=== PATIENT | female | born 1945 | race Caucasian/White ===

== ENCOUNTER 2019-08-08 12:22 | Inpatient (IN) | payer MEDICARE ==
[~2019-08-08] VITALS: Ht 157.5 cm; Wt 59.5 kg
[2019-08-08] VITALS (7 sets, daily range): BP systolic 130–166; BP diastolic 61–78; BMI 24.2
[2019-08-08] MEDS ORDERED: LANTUS SOL100 UNIT/1 SC (12:32)
[2019-08-08] MEDS ORDERED: NOVOLOG100 UNIT/1 SC (12:32)
[2019-08-08] MEDS ORDERED: HYDROCODON-ACE1 EA10 PO (12:33)
[2019-08-08] MEDS ORDERED: TOPROL XL50 MG PO (12:33)
[2019-08-08] MEDS ORDERED: LOTENSIN40 MG PO (12:33)
[2019-08-08] MEDS ORDERED: ZOLOFT50 MG PO (12:33)
[2019-08-08 13:02] LABS: BASOPHILS 0.3 % (0-2); EOSINOPHILS 2.1 % (0-7); HEMATOCRIT 44.6 % (36.0-48.0); HEMOGLOBIN 16.2 g/dL (12-16); IMMATURE GRANULOCYTES 0.4 % (0-5); LYMPHOCYTES 16.7 % (15-50); MCH 31.6 pg (26.0-34.0); MCHC 36.3 g/dL (31.0-37.0); MCV 87.1 fL (80.0-100.0); MEAN PLATELET VOLUME 12.9 fL (7.4-10.4); MONOCYTES 6.6 % (2-11); NEUTROPHILS 73.9 % (40-80); PLATELET COUNT 140 10x3/uL (130-400); RBC 5.12 10x6/uL (4.00-5.40); RDW 12.4 % (11.5-14.5); WBC 11.1 10x3/uL (4.8-10.8)
[2019-08-08 13:06] LABS: KETONE - SERUM NEGATIVE (NEGATIVE)
[2019-08-08 13:17] LABS: ALBUMIN 4.4 g/dL (3.4-5.0); ALKALINE PHOSPHATASE 171 U/L (46-116); ALT (SGPT) 22 U/L (10-68); BILIRUBIN - TOTAL 1.31 mg/dL (0.2-1.3); CARBON DIOXIDE 26.9 mmol/L (21.0-32.0); CHLORIDE - SERUM 90 mmol/L (98-107); CREATININE - SERUM 1.5 mg/dL (0.6-1.3); MAGNESIUM - SERUM 2.3 mg/dL (1.8-2.4); POTASSIUM - SERUM 5.1 mmol/L (3.5-5.1); PROTEIN - SERUM 8.3 g/dL (6.4-8.2); SODIUM 128 mmol/L (136-145); UREA NITROGEN 44 mg/dL (7-18); eGFR NON AFRICAN AMERICAN 36 mL/min (90-120)
[2019-08-08 13:18] LABS: CALC OSMOLALITY 303 mosm/kg (275-300)
[2019-08-08 13:21] LABS: GLUCOSE 744 mg/dL (74-106)
[2019-08-08 14:25] LABS: APTT 25.3 SECONDS (22.8-39.4); INR 1.09 (0.85-1.17); PROTIME 14.1 SECONDS (11.6-15.0)
[2019-08-08 14:26] LABS: D-DIMER-QUANTITATIVE 0.45 ug/mLFEU (0.20-0.54)
--- NOTE | 2019-08-08 14:34 | NUR ---
FSBS= 509 MG/DL DR SHELTON NOTIFIED
[2019-08-08 15:25] LABS: APPEARANCE CLEAR (CLEAR); BILIRUBIN NEGATIVE (NEGATIVE); COLOR YELLOW (YELLOW); GLUCOSE 1000 mg/dL (NEGATIVE); KETONE NEGATIVE (NEGATIVE); NITRITE NEGATIVE (NEGATIVE); PROTEIN NEGATIVE (NEGATIVE); UROBILINOGEN NORMAL (NORMAL)
--- NOTE | 2019-08-08 15:32 | NUR ---
REPORT CALLED TO HERVE MOTA
--- NOTE | 2019-08-08 16:34 | NUR ---
ROOM CLEAN, PT TRANSPORTED TO ROOM #2112, CONDITION STABLE
--- NOTE | 2019-08-08 16:49 | NUR ---
TRANSFER FROM ER BY W/C. CALL LIGHT IN REACH. WILL CONT. PLAN OF CARE.
[2019-08-08] MEDS ORDERED: OXYBUTYNIN CHLOR5 M1 PO (16:52)
--- NOTE | 2019-08-08 16:54 | MORECARE ---
CASE MANAGEMENT DISCHARGE SUMMARY PATIENT: ENDER FERRELL KARLEY UNIT: [id number] ADM DATE: 08/08/19 AGE: 74 : 46 SEX: F ROOM/BED: D.4045 AUTHOR: KIERAN,DOC PHYSICIAN: REFERRING PHYSICIAN: TEE ISLAS MD DATE OF SERVICE: 08/08/19 Discharge Plan Patient Name: ENDER FERRELL Facility: [facility]:[place] : 1945 Planned Disposition: Anticipated Discharge Date: Discharge Date: Expected LOS: Initial Reviewer: [email or web address] Initial Review Date: 08/08/2019 Generated: 08/08/19 5:54 pm DCP- Discharge Planning Updated by [email or web address]: Edwina Campbell on 08/08/19 3:[address] CM met with patient to discuss initial discharge planning. Patient is in agreement to proceed with the assessment with son, Mp Ferrell present. Patient is alert/oriented. Stairs/steps: 2. PCP: Brianna Matt APRN. Pharmacy: [email or web address]. Patient's son states she has been able to obtain all of their prescribed medications. Patient lives with son, Mp Ferrell. HHS: No. DME: No. Patient gives permission to speak with family members/care givers. Emergency contact: Mp Ferrell (son) [phone]. Patient is Independent with all ADL's, medication management. CM discussed the availability of HH, Rehab, DME services. Patient denies the need for additional services at this time and feels safe returning to previous environment. Patient denies being hospitalized within the past 30 days. Patient denies the use of community resources SET STAFF FITTER. Transportation at time of discharge: Mp Ferrell (son). DCPIA - Discharge Planning Initial Assessment Updated by [email or web address]: Edwina Campbell on 08/08/19 4:52 pm * Is the patient Alert and Oriented? Yes * How many steps to enter\exit or inside your home? * PCP Brianna Matt APRN [facility] [place] * Pharmacy [facility] * Preadmission Environment Home with Family * ADLs Independent * Equipment None * Other Equipment NA * List name and contact numbers for known caregivers / representatives who currently or will assist patient after discharge: Mp Ferrell (son) [phone] * Verbal permission to speak to the caregivers and representatives has been obtained from the patient. Yes * Community resources currently utilized None * Please name any agencies selected above. NA * Additional services required to return to the preadmission environment? No * Can the patient safely return to the preadmission environment? Yes * Has this patient been hospitalized within the prior 30 days at any hospital? No Patient Name: ENDER FERRELL Page [id number] at 1654 All edits/amendments must be made on the electronic document DICTATION DATE: 08/08/191653 MANAGER STAFFING: VALERIE 08/08/191653 RPT#: [id number] DC DATE: STATUS: ADM IN [facility] [address] [place] [address] END OF REPORT
[2019-08-08] MEDS ORDERED: ZANAFLEX4 MG PO (20:00)
[2019-08-08 21:51] LABS: ANION GAP 8.5 mmol/L (8-16); CALCIUM 7.8 mg/dL (8.5-10.1); CARBON DIOXIDE 30.6 mmol/L (21.0-32.0); CREATININE - SERUM 1.4 mg/dL (0.6-1.3); POTASSIUM - SERUM 4.1 mmol/L (3.5-5.1)
[2019-08-09 01:49] VITALS: BP 123/59
[2019-08-09 04:00] VITALS: BP 163/65
--- NOTE | 2019-08-09 04:06 | NUR ---
I have reviewed this patient and I concur with the Shift Assessment completed by the Licensed Practical Nurse today this shift.
[2019-08-09 06:14] LABS: KETONE - SERUM NEGATIVE (NEGATIVE)
[2019-08-09 06:42] LABS: ALBUMIN 3.4 g/dL (3.4-5.0); ALKALINE PHOSPHATASE 88 U/L (46-116); ALT (SGPT) 18 U/L (10-68); BILIRUBIN - TOTAL 0.49 mg/dL (0.2-1.3); CALC OSMOLALITY 290 mosm/kg (275-300); CARBON DIOXIDE 21.7 mmol/L (21.0-32.0); CHLORIDE - SERUM 107 mmol/L (98-107); GLUCOSE 176 mg/dL (74-106); POTASSIUM - SERUM 3.9 mmol/L (3.5-5.1); PRO BNP 425 pg/mL (0-125); PROTEIN - SERUM 6.4 g/dL (6.4-8.2); SODIUM 140 mmol/L (136-145); UREA NITROGEN 35 mg/dL (7-18); eGFR NON AFRICAN AMERICAN 58 mL/min (90-120)
[2019-08-09 07:26] LABS: BASOPHILS 0.3 % (0-2); EOSINOPHILS 3.6 % (0-7); HEMATOCRIT 37.2 % (36.0-48.0); HEMOGLOBIN 13.4 g/dL (12-16); IMMATURE GRANULOCYTES 0.1 % (0-5); LYMPHOCYTES 32.1 % (15-50); MCH 31.2 pg (26.0-34.0); MCV 86.7 fL (80.0-100.0); MEAN PLATELET VOLUME 13.2 fL (7.4-10.4); MONOCYTES 7.1 % (2-11); NEUTROPHILS 56.8 % (40-80); PLATELET COUNT 117 10x3/uL (130-400); RBC 4.29 10x6/uL (4.00-5.40); RDW 12.9 % (11.5-14.5)
[2019-08-09 07:33] LABS: WBC 7.7 10x3/uL (4.8-10.8)
--- NOTE | 2019-08-09 08:03 | NUR ---
PATIENT IS RESTING QUIETLY ON HER BACK IN BED. LIGHTS LOW. SON AT BEDSIDE.
[2019-08-09 09:48] VITALS: BP 158/63
[2019-08-09 13:41] VITALS: Ht 157.5 cm; Wt 59.5 kg
[2019-08-09 13:44] VITALS: BP 148/68
--- NOTE | 2019-08-09 14:01 | NUR ---
IV START IN LEFT FOREARM, 20G, ONE STICK.
[2019-08-09 15:07] LABS: ANION GAP 11.5 mmol/L (8-16); CALCIUM 7.3 mg/dL (8.5-10.1)
[2019-08-09 15:08] LABS: POTASSIUM - SERUM 4.5 mmol/L (3.5-5.1)
[2019-08-09 17:09] VITALS: BP 121/46
[2019-08-09 20:00] VITALS: BP 133/55
[2019-08-10] VITALS: BP 128/47
[2019-08-10 04:00] VITALS: BP 152/45
--- NOTE | 2019-08-10 04:30 | NUR ---
I have reviewed this patient and I concur with the Shift Assessment completed by the Licensed Practical Nurse today this shift.
[2019-08-10 06:36] LABS: BASOPHILS 0.2 % (0-2); EOSINOPHILS 3.7 % (0-7); HEMATOCRIT 32.9 % (36.0-48.0); HEMOGLOBIN 11.4 g/dL (12-16); LYMPHOCYTES 30.9 % (15-50); MCH 30.6 pg (26.0-34.0); MCHC 34.7 g/dL (31.0-37.0); MCV 88.4 fL (80.0-100.0); MEAN PLATELET VOLUME 12.8 fL (7.4-10.4); MONOCYTES 7.7 % (2-11); NEUTROPHILS 57.5 % (40-80); RBC 3.72 10x6/uL (4.00-5.40); RDW 12.9 % (11.5-14.5)
[2019-08-10 06:53] LABS: KETONE - SERUM NEGATIVE (NEGATIVE)
[2019-08-10 06:57] LABS: PLATELET COUNT 81 10x3/uL (130-400); WBC 4.1 10x3/uL (4.8-10.8)
[2019-08-10 07:06] LABS: CALCIUM 7.5 mg/dL (8.5-10.1); CARBON DIOXIDE 25.3 mmol/L (21.0-32.0); CHLORIDE - SERUM 110 mmol/L (98-107); CREATININE - SERUM 0.9 mg/dL (0.6-1.3); MAGNESIUM - SERUM 1.9 mg/dL (1.8-2.4); SODIUM 142 mmol/L (136-145); UREA NITROGEN 27 mg/dL (7-18); eGFR NON AFRICAN AMERICAN 65 mL/min (90-120)
[2019-08-10 07:07] LABS: CALC OSMOLALITY 295 mosm/kg (275-300); GLUCOSE 237 mg/dL (74-106); POTASSIUM - SERUM 3.8 mmol/L (3.5-5.1)
[2019-08-10 10:00] LABS: PLATELET ESTIMATE DECREASED
[2019-08-10 10:01] LABS: ROULEAUX OCC
--- NOTE | 2019-08-10 14:37 | NUR ---
PATIENT IS RESTING QUIETLY IN HER ROOM AT THIS TIME. SHE DENIES ANY NEEDS AT THIS TIME.
[2019-08-10 14:56] VITALS: BP 170/64
--- NOTE | 2019-08-10 15:31 | MORECARE ---
CASE MANAGEMENT DISCHARGE SUMMARY PATIENT: ENDER FERRELL KARLEY UNIT: [id number] ADM DATE: 08/08/19 AGE: 74 : 46 SEX: F ROOM/BED: D.7839 AUTHOR: KIERAN,DOC PHYSICIAN: REFERRING PHYSICIAN: TEE ISLAS MD DATE OF SERVICE: 08/10/19 Discharge Plan Patient Name: ENDER FERRELL Facility: [facility]:[place] : 1945 Planned Disposition: Anticipated Discharge Date: Discharge Date: Expected LOS: Initial Reviewer: [email or web address] Initial Review Date: 08/08/2019 Generated: 08/10/19 4:31 pm DCP- Discharge Planning Updated by [email or web address]: Edwina Campbell on 08/08/19 3:[address] CM met with patient to discuss initial discharge planning. Patient is in agreement to proceed with the assessment with son, Mp Ferrell present. Patient is alert/oriented. Stairs/steps: 2. PCP: Brianna Matt APRN. Pharmacy: [facility]. Patient's son states she has been able to obtain all of their prescribed medications. Patient lives with son, Mp Ferrell. HHS: No. DME: No. Patient gives permission to speak with family members/care givers. Emergency contact: Mp Ferrell (son) [phone]. Patient is Independent with all ADL's, medication management. CM discussed the availability of HH, Rehab, DME services. Patient denies the need for additional services at this time and feels safe returning to previous environment. Patient denies being hospitalized within the past 30 days. 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 Transportation at time of discharge: Mp Ferrell (son). DCPIA - Discharge Planning Initial Assessment Updated by [email or web address]: Edwina Campbell on 08/08/19 4:52 pm * Is the patient Alert and Oriented? Yes * How many steps to enter\exit or inside your home? * PCP Brianna Matt APRN [facility] [place] * Pharmacy [facility] * Preadmission Environment Home with Family * ADLs Independent * Equipment None * Other Equipment NA * List name and contact numbers for known caregivers / representatives who currently or will assist patient after discharge: Mp Ferrell (son) [phone] * Verbal permission to speak to the caregivers and representatives has been obtained from the patient. Yes * Community resources currently utilized None * Please name any agencies selected above. NA * Additional services required to return to the preadmission environment? No * Can the patient safely return to the preadmission environment? Yes * Has this patient been hospitalized within the prior 30 days at any hospital? No Coverage Notice Reviewer: [id number] Endy Boggs Notice Issued Date-Time: 08/10/2019 15:26 Notice Type: IM Discharge Notice Notice Delivered To: Patient Relationship to Patient: Director Of Hotel Name: Delivery Method: HAND - Hand Delivered Elena Days: Prior Verbal Notification: Recipient Understood Notice: Yes Recipient Signature: Yes Med Rec Note Co-signed by Attending: Coverage Notice Comment: Last DP export: 08/08/19 3:54 p Patient Name: ENDER FERRELL Page 48852 at 1531 All edits/amendments must be made on the electronic document DICTATION DATE: 08/10/19 1531 OVERLOCK HEMMER: VALERIE 08/10/19 1531 RPT#: [id number] DC DATE: STATUS: ADM IN [facility] [address] [place] [address] END OF REPORT
[2019-08-10 16:00] VITALS: BP 183/63
[2019-08-10 20:00] VITALS: BP 163/58
[2019-08-11 04:00] VITALS: BP 174/72
[2019-08-11 05:27] LABS: BASOPHILS 0.2 % (0-2); EOSINOPHILS 4.5 % (0-7); HEMATOCRIT 32.7 % (36.0-48.0); HEMOGLOBIN 11.4 g/dL (12-16); IMMATURE GRANULOCYTES 0.2 % (0-5); LYMPHOCYTES 32.3 % (15-50); MCH 30.7 pg (26.0-34.0); MCHC 34.9 g/dL (31.0-37.0); MCV 88.1 fL (80.0-100.0); MEAN PLATELET VOLUME 12.4 fL (7.4-10.4); MONOCYTES 9.6 % (2-11); NEUTROPHILS 53.2 % (40-80); PLATELET COUNT 78 10x3/uL (130-400); RBC 3.71 10x6/uL (4.00-5.40); RDW 12.8 % (11.5-14.5); WBC 4.7 10x3/uL (4.8-10.8)
[2019-08-11 05:54] LABS: ANION GAP 11.5 mmol/L (8-16); CALCIUM 7.7 mg/dL (8.5-10.1); CREATININE - SERUM 0.8 mg/dL (0.6-1.3); MAGNESIUM - SERUM 1.8 mg/dL (1.8-2.4); PHOSPHOROUS 2.8 mg/dL (2.5-4.9); POTASSIUM - SERUM 4.5 mmol/L (3.5-5.1)
--- NOTE | 2019-08-11 07:06 | NUR ---
I have reviewed this patient and I concur with the Shift Assessment completed by the Licensed Practical Nurse today this shift.
[2019-08-11 08:54] VITALS: BP 159/61
[2019-08-11 12:00] VITALS: BP 192/70
--- NOTE | 2019-08-11 14:35 | NUR ---
PATIENT IS BEING DISCHARGED. ATTEMPTED TO CONTACT THE SON, HER DISCHARGE TRANSPORTATION. HE IS NO ANSWERING ANY OF THE NUMBERS LISTED. ATTEMPTED TO CONTACT X5. SON ELOISE STATED THAT HE WOULD BE BACK UP HERE THIS AFTERNOON. WHEN HE DOES HE WILL BE INFORMED OF HER DISCHARGE.
--- NOTE | 2019-08-11 15:31 | NUR ---
CONTACTED ELOISE PATIENT FAMILY. HE IS GOING TO HEAD THIS WAY. HE LIVES AN HOUR AWAY. DISCHARGE TEACHING COMPLETED AND PATIENT IS AWARE, PAPERS SIGNED.
[2019-08-11 16:00] VITALS: BP 170/76
--- NOTE | 2019-08-11 17:29 | NUR ---
PATIENT HAS BEEN DISCHARGED . ALL TEACHING COMPLETE AND PAPERS SIGNED. PATIENT IS GOING HOME WITH FAMILY SHE IS GOING DOWN STAIRS IN A WHEELCHAIR. ALL PATIENT BELONGINGS ARE GOING HOME WITH THE PATIENT. IV REMOVED WITH CATHETER INTACT.
--- NOTE | 2019-08-12 19:10 | MORECARE ---
CASE MANAGEMENT DISCHARGE SUMMARY PATIENT: ENDER FERRELL KARLEY UNIT: [id number] ADM DATE: 08/08/19 AGE: 74 : 46 SEX: F ROOM/BED: D.4503 AUTHOR: KIERAN,DOC PHYSICIAN: REFERRING PHYSICIAN: TEE ISLAS MD DATE OF SERVICE: 08/12/19 Discharge Plan Patient Name: ENDER FERRELL Facility: [facility]:[place] : 1945 Planned Disposition: Anticipated Discharge Date: Discharge Date: 08/11/2019 Expected LOS: Initial Reviewer: [email or web address] Initial Review Date: 08/08/2019 Generated: 08/12/19 8:10 pm DCP- Discharge Planning Updated by [email or web address]: Edwina Campbell on 08/08/19 3:[address] CM met with patient to discuss initial discharge planning. Patient is in agreement to proceed with the assessment with son, Mp Ferrell present. Patient is alert/oriented. Stairs/steps: 2. PCP: Brianna Matt APRN. Pharmacy: [facility]. Patient's son states she has been able to obtain all of their prescribed medications. Patient lives with son, Mp Ferrell. HHS: No. DME: No. Patient gives permission to speak with family members/care givers. Emergency contact: Mp Ferrell (son) [phone]. Patient is Independent with all ADL's, medication management. CM discussed the availability of HH, Rehab, DME services. Patient denies the need for additional services at this time and feels safe returning to previous environment. Patient denies being hospitalized within the past 30 days. 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 Transportation at time of discharge: Mp Ferrell (son). DCPIA - Discharge Planning Initial Assessment Updated by [email or web address]: Edwina Campbell on 08/08/19 4:52 pm * Is the patient Alert and Oriented? Yes * How many steps to enter\exit or inside your home? * PCP Brianna Matt APRN [facility] [place] * Pharmacy [facility] * Preadmission Environment Home with Family * ADLs Independent * Equipment None * Other Equipment NA * List name and contact numbers for known caregivers / representatives who currently or will assist patient after discharge: Mp Ferrell (son) [phone] * Verbal permission to speak to the caregivers and representatives has been obtained from the patient. Yes * Community resources currently utilized None * Please name any agencies selected above. NA * Additional services required to return to the preadmission environment? No * Can the patient safely return to the preadmission environment? Yes * Has this patient been hospitalized within the prior 30 days at any hospital? No Coverage Notice Reviewer: [id number] Endy Boggs Notice Issued Date-Time: 08/10/2019 15:26 Notice Type: IM Discharge Notice Notice Delivered To: Patient Relationship to Patient: Cargo Broker Name: Delivery Method: HAND - Hand Delivered Elena Days: Prior Verbal Notification: Recipient Understood Notice: Yes Recipient Signature: Yes Med Rec Note Co-signed by Attending: Coverage Notice Comment: Last DP export: 08/10/19 2:31 p Patient Name: ENDER FERRELL Page 62426 at 1910 All edits/amendments must be made on the electronic document DICTATION DATE: 08/12/191909 LACE CUTTER: VALERIE 08/12/191909 RPT#: [id number] DC DATE:08/11/19 STATUS: DIS IN [facility] [address] [place] [address] END OF REPORT
== END 2019-08-11 18:46 | disposition home or self-care (01) | DRG 638 ==
LOC: D.ER 12:22 → D.M2 15:01
PROVIDERS: Family Medicine; ADMIT Internal Medicine Nephrology; ATTEND Internal Medicine Nephrology
DX: E11.65 Type 2 diabetes mellitus with hyperglycemia (principal); E87.1 Hypo-osmolality and hyponatremia; N17.9 Acute kidney failure, unspecified; J44.9 Chronic obstructive pulmonary disease, unspecified; E78.5 Hyperlipidemia, unspecified; I10 Essential (primary) hypertension; E11.40 Type 2 diabetes mellitus with diabetic neuropathy, unspecified; F32.9 Major depressive disorder, single episode, unspecified

== ENCOUNTER 2019-10-02 14:37 | Inpatient (IN) | payer MEDICARE ==
[~2019-10-02] VITALS: Ht 157.5 cm; Wt 60.3 kg
[~2019-10-02 14:37] MED LIST: HYDROCODON-ACE1 EA10 PO; LANTUS SOL100 UNIT/1 SC; LOTENSIN40 MG PO; NOVOLOG100 UNIT/1 SC; OXYBUTYNIN CHLOR5 M1 PO; TOPROL XL50 MG PO; ZANAFLEX4 MG PO; ZOLOFT50 MG PO
[2019-10-02] MEDS ORDERED: [UNRECOGNIZED DRUG - REMARK] (15:02)
[2019-10-02 15:33] LABS: BASOPHILS 0.1 % (0-2); EOSINOPHILS 2.3 % (0-7); HEMATOCRIT 42.2 % (36.0-48.0); HEMOGLOBIN 15.2 g/dL (12-16); IMMATURE GRANULOCYTES 0.4 % (0-5); LYMPHOCYTES 18.3 % (15-50); MCH 31.4 pg (26.0-34.0); MCV 87.2 fL (80.0-100.0); MEAN PLATELET VOLUME 11.7 fL (7.4-10.4); MONOCYTES 7.2 % (2-11); NEUTROPHILS 71.7 % (40-80); RBC 4.84 10x6/uL (4.00-5.40); RDW 12.9 % (11.5-14.5); WBC 9.5 10x3/uL (4.8-10.8)
[2019-10-02 15:37] LABS: PLATELET COUNT 173 10x3/uL (130-400)
[2019-10-02 15:46] LABS: ANION GAP 13.6 mmol/L (8-16); CALCIUM 9.5 mg/dL (8.5-10.1); CARBON DIOXIDE 27.6 mmol/L (21.0-32.0); CREATININE - SERUM 1.3 mg/dL (0.6-1.3); POTASSIUM - SERUM 4.2 mmol/L (3.5-5.1)
[2019-10-02 15:52] LABS: BILIRUBIN - TOTAL 0.6 mg/dL (0.2-1.3); PROTEIN - SERUM 8.5 g/dL (6.4-8.2)
--- NOTE | 2019-10-02 20:01 | NUR ---
PT SITTING IN CHAIR. NO ACUTE DISTRESS NOTED. WILLL CONTINUE TO MONITOR.
--- NOTE | 2019-10-02 20:46 | NUR ---
FSBS 311.
--- NOTE | 2019-10-02 21:03 | NUR ---
PT ARRIVED ON UNIT VIA WHEELCHAIR ESCORTED BY ER NURSE AND FAMILY MEMBER. IV TO RIGHT FA PATENT WITH NS INFUSING ON ARRIVAL...PLACED ON PUMP AT 75 ML/HR PER ORDER.
[2019-10-02] MEDS ORDERED: AUGMENTIN 875-11 TAB PO (21:19)
[2019-10-02 23:15] VITALS: BP 166/64; BMI 24.4
[2019-10-03 01:59] VITALS: BP 161/54
[2019-10-03 04:36] LABS: BASOPHILS 0.2 % (0-2); EOSINOPHILS 2.8 % (0-7); HEMATOCRIT 37.2 % (36.0-48.0); IMMATURE GRANULOCYTES 0.2 % (0-5); LYMPHOCYTES 20.3 % (15-50); MCHC 34.9 g/dL (31.0-37.0); MCV 88.8 fL (80.0-100.0); MEAN PLATELET VOLUME 12.2 fL (7.4-10.4); MONOCYTES 8.9 % (2-11); NEUTROPHILS 67.6 % (40-80); PLATELET COUNT 125 10x3/uL (130-400); RBC 4.19 10x6/uL (4.00-5.40); RDW 13.1 % (11.5-14.5); WBC 5.4 10x3/uL (4.8-10.8)
[2019-10-03 04:50] LABS: CARBON DIOXIDE 26.4 mmol/L (21.0-32.0); MAGNESIUM - SERUM 1.7 mg/dL (1.8-2.4); PHOSPHOROUS 3.7 mg/dL (2.5-4.9)
[2019-10-03 04:54] LABS: POTASSIUM - SERUM 3.4 mmol/L (3.5-5.1)
--- NOTE | 2019-10-03 05:31 | NUR ---
BLOOD SUGAR 52 WITH AM LABS. GAVE 1 CUP ORANGE JUICE, 3 PKGS OF ZOYA CRACKERS, AND 2 TBS PEANUT BUTTER. POTASSIUM AND MAG LEVELS ALSO LOW AND WERE TREATED PER THE ELECTROLYTE PROTOCAL.
[2019-10-03 06:04] VITALS: BP 156/55
[2019-10-03 08:00] VITALS: BP 174/64
[2019-10-03 10:17] VITALS: Ht 157.5 cm; Wt 60.3 kg
[2019-10-03 12:00] VITALS: BP 127/61
[2019-10-03 17:09] VITALS: BP 143/61
--- NOTE | 2019-10-03 20:00 | NUR ---
AMBULATING IN ROOM. ALERT AND ORIENTED X4. RESP IRREG. BBS EXP WHEEZES. PT IS A SMOKER. BANDAID NOTED TO RT FOOT WHICH IS RED AND SWOLLEN. NS @ 50 ML/HR INFUSING IN RT AC WITHOUT DIFF. DENIES PAIN. SR ELEVATED X2. CL IN REACH.
--- NOTE | 2019-10-03 20:45 | NUR ---
MEDICATED WITH MORHPINE FOR C/O PAIN IN RT FOOT RATING 8. SON AT BEDSIDE. CL IN REACH.
[2019-10-03 21:09] VITALS: BP 150/63
[2019-10-04 01:29] VITALS: BP 179/57
--- NOTE | 2019-10-04 02:13 | NUR ---
HAS RESTED WELL SO FAR THIS SHIFT. SON AT BEDSIDE. CL IN REACH.
--- NOTE | 2019-10-04 05:20 | NUR ---
MEDICATED WITH MORPHINE FOR C/O PAIN IN RT FOOT/ANKLE. CL IN REACH. SON AT BEDSIDE.
[2019-10-04 05:53] VITALS: BP 134/64
--- NOTE | 2019-10-04 06:10 | NUR ---
INSTRUCTED PT ON URINE SPECIMEN COLLECTION. SHE VERBALIZED UNDERSTANDING.
[2019-10-04 06:18] LABS: BASOPHILS 0.2 % (0-2); EOSINOPHILS 4.6 % (0-7); HEMATOCRIT 34.4 % (36.0-48.0); HEMOGLOBIN 11.6 g/dL (12-16); IMMATURE GRANULOCYTES 0.2 % (0-5); LYMPHOCYTES 27.9 % (15-50); MCH 30.5 pg (26.0-34.0); MCHC 33.7 g/dL (31.0-37.0); MCV 90.5 fL (80.0-100.0); MONOCYTES 6.6 % (2-11); NEUTROPHILS 60.5 % (40-80); PLATELET COUNT 112 10x3/uL (130-400); RDW 12.9 % (11.5-14.5); WBC 4.1 10x3/uL (4.8-10.8)
--- NOTE | 2019-10-04 06:30 | NUR ---
URINE SPECIMEN COLLECTED AND TAKEN TO LAB AT THIS TIME.
[2019-10-04 06:42] LABS: ANION GAP 10.2 mmol/L (8-16); CALCIUM 8.1 mg/dL (8.5-10.1); CREATININE - SERUM 0.9 mg/dL (0.6-1.3); PHOSPHOROUS 3.2 mg/dL (2.5-4.9); POTASSIUM - SERUM 4.2 mmol/L (3.5-5.1)
[2019-10-04 06:53] LABS: BILIRUBIN NEGATIVE (NEGATIVE); GLUCOSE NEGATIVE (NEGATIVE); KETONE NEGATIVE (NEGATIVE); NITRITE NEGATIVE (NEGATIVE); SPECIFIC GRAVITY 1.015 (1.005-1.020); UROBILINOGEN NORMAL (NORMAL)
[2019-10-04 08:30] VITALS: BP 152/62
[2019-10-04] MEDS ORDERED: AUGMENTIN 875-11 TAB PO (12:25)
[2019-10-04] MEDS ORDERED: HYDROCODON-ACE1 EAC7 PO ×2 (13:17→14:30)
[2019-10-04 13:52] VITALS: BP 130/57
--- NOTE | 2019-10-04 14:07 | MORECARE ---
CASE MANAGEMENT DISCHARGE SUMMARY PATIENT: ENDER FERRELL KARLEY UNIT: [id number] ADM DATE: 10/02/19 AGE: 74 : 46 SEX: F ROOM/BED: D.2206 AUTHOR: AUSTEN ALCARAZ PHYSICIAN: REFERRING PHYSICIAN: TEE ISLAS MD DATE OF SERVICE: 10/04/19 Discharge Plan Patient Name: ENDER FERRELL [facility] [facility] 1945 Planned Disposition: Home or Self Care Anticipated Discharge Date: Discharge Date: Expected LOS: Initial Reviewer: [email or web address] Initial Review Date: 10/02/2019 Generated: 10/04/19 3:07 pm DCPIA - Discharge Planning Initial Assessment Updated by [email or web address]: Clarita Choe on 10/04/19 2:06 pm * Is the patient Alert and Oriented? Yes * PCP [facility] * Preadmission Environment Home with Family * ADLs Independent * Equipment None * List name and contact numbers for known caregivers / representatives who currently or will assist patient after discharge: ELOISE (SON) [phone] * Verbal permission to speak to the caregivers and representatives has been obtained from the patient. N/A * Community resources currently utilized None * Additional services required to return to the preadmission environment? No * Can the patient safely return to the preadmission environment? Yes * Has this patient been hospitalized within the prior 30 days at any hospital? No Patient Name: ENDER FERRELL Page 94854 at 1407 All edits/amendments must be made on the electronic document DICTATION DATE: 10/04/19 1407 SYSTEMS TECHNOLOGIST: VALERIE 10/04/19 1407 RPT#: [id number] DC DATE: STATUS: ADM IN [facility] [address] [place] [address] END OF REPORT
--- NOTE | 2019-10-04 14:15 | MORECARE ---
CASE MANAGEMENT DISCHARGE SUMMARY PATIENT: ENDER FERRELL KARLEY UNIT: [id number] ADM DATE: 10/02/19 AGE: 74 : 46 SEX: F ROOM/BED: D.2323 AUTHOR: KIERANDOC PHYSICIAN: REFERRING PHYSICIAN: TEE ISLAS MD DATE OF SERVICE: 10/04/19 Discharge Plan Patient Name: ENDER FERRELL Facility: [facility]:[place] : 1945 Planned Disposition: Home or Self Care Anticipated Discharge Date: Discharge Date: Expected LOS: Initial Reviewer: [email or web address] Initial Review Date: 10/02/2019 Generated: 10/04/19 3:15 pm Comments DCP- Discharge Planning Updated by [email or web address]: Clarita Choe on 10/04/19 1:[address] Patient Name: ENDER FERRELL Admission Status: ER Accout number: [id number] Admission Date: 10-02-2019 : 1945 Admission Diagnosis: Attending: TEE ISLAS Current LOS: 2 Anticipated DC Date: Planned Disposition: Home or Self Care Primary Insurance: [employer] CHOICE PPO MCR ADVANT Discharge Planning Comments: CM met with patient to complete initial dc planning assessment. CM educated patient on the CM role and verbal consent given by patient to complete assessment. Patient lives at home where she is independent with her care. At discharge patient plans to return home and feels this is a safe discharge. CM discussed availability of home health, rehab services, and medical equipment. Her son will be her backhaul driver home. Patient denied known discharge needs at this time. CM will continue to follow and will assist as needed with dc plans/needs. Operating Room Technician: Clarita Choe DCPIA - Discharge Planning Initial Assessment Updated by [id number]: Clarita Choe on 10/04/19 2:06 pm * Is the patient Alert and Oriented? Yes * PCP [facility] * Preadmission Environment Home with Family * ADLs Independent * Equipment None * List name and contact numbers for known caregivers / representatives who currently or will assist patient after discharge: ELOISE (SON) [phone] * Verbal permission to speak to the caregivers and representatives has been obtained from the patient. N/A * Community resources currently utilized None * Additional services required to return to the preadmission environment? No * Can the patient safely return to the preadmission environment? Yes * Has this patient been hospitalized within the prior 30 days at any hospital? No Last DP export: 10/04/19 1:07 p Patient Name: ENDER FERRELL Page 27801 at 1415 All edits/amendments must be made on the electronic document DICTATION DATE: 10/04/191413 SPORTS COMPLEX ATTENDANT: VALERIE 10/04/191413 RPT#: [id number] DC DATE: STATUS: ADM IN [facility] [address] [place] [address] END OF REPORT
--- NOTE | 2019-10-04 14:49 | NUR ---
IV DCD WITH CATH TIP INTACT.DISCHARGE INSTRUCTIONS,STATES UNDERSTANDING. LEFT UNIT VIA WHEELCHAIR FOR TRANSPORT HOME
--- NOTE | 2019-10-06 09:51 | MORECARE ---
CASE MANAGEMENT DISCHARGE SUMMARY PATIENT: ENDER FERRELL KARLEY UNIT: [id number] ADM DATE: 10/02/19 AGE: 74 : 46 SEX: F ROOM/BED: D.4866 AUTHOR: KIERANDOC PHYSICIAN: REFERRING PHYSICIAN: TEE ISLAS MD DATE OF SERVICE: 10/06/19 Discharge Plan Patient Name: ENDER FERRELL Facility: [facility]:[place] : 1945 Planned Disposition: Home or Self Care Anticipated Discharge Date: Discharge Date: 10/04/2019 Expected LOS: Initial Reviewer: [email or web address] Initial Review Date: 10/02/2019 Generated: 10/06/19 10:51 am Comments DCP- Discharge Planning Updated by [email or web address]: Clarita Choe on 10/04/19 1:[address] Patient Name: ENDER FERRELL Admission Status: ER Accout number: [id number] Admission Date: 10-02-2019 : 1945 Admission Diagnosis: Attending: TEE ISLAS Current LOS: 2 Anticipated DC Date: Planned Disposition: Home or Self Care Primary Insurance: HU[employer]NA CHOICE PPO MCR [facility] Discharge Planning Comments: CM met with patient to complete initial dc planning assessment. CM educated patient on the CM role and verbal consent given by patient to complete assessment. Patient lives at home where she is independent with her care. At discharge patient plans to return home and feels this is a safe discharge. CM discussed availability of home health, rehab services, and medical equipment. Her son will be her high lift driver home. Patient denied known discharge needs at this time. CM will continue to follow and will assist as needed with dc plans/needs. Police Worker: Clarita Choe DCPIA - Discharge Planning Initial Assessment Updated by [email or web address]: Clarita Choe on 10/04/19 2:06 pm * Is the patient Alert and Oriented? Yes * PCP [facility] * Preadmission Environment Home with Family * ADLs Independent * Equipment None * List name and contact numbers for known caregivers / representatives who currently or will assist patient after discharge: ELOISE (SON) [phone] * Verbal permission to speak to the caregivers and representatives has been obtained from the patient. N/A * Community resources currently utilized None * Additional services required to return to the preadmission environment? No * Can the patient safely return to the preadmission environment? Yes * Has this patient been hospitalized within the prior 30 days at any hospital? No Last DP export: 10/04/19 1:15 p Patient Name: ENDER FERRELL Page 46526 at 0951 All edits/amendments must be made on the electronic document DICTATION DATE: 10/06/19950 POOL LIFEGUARD: VALERIE 10/06/19950 RPT#: [id number] DC DATE:10/04/19 STATUS: DIS IN [facility] [address] [place] [address] END OF REPORT
== END 2019-10-04 14:51 | disposition home or self-care (01) | DRG 605 ==
LOC: D.ER 14:37 → D.MS 17:36
PROVIDERS: Family Medicine; ADMIT Internal Medicine Nephrology; ATTEND Internal Medicine Nephrology
DX: S91.351A Open bite, right foot, initial encounter (principal); F17.213 Nicotine dependence, cigarettes, with withdrawal; W55.01XA Bitten by cat, initial encounter; I10 Essential (primary) hypertension; F32.9 Major depressive disorder, single episode, unspecified; J44.9 Chronic obstructive pulmonary disease, unspecified; E11.40 Type 2 diabetes mellitus with diabetic neuropathy, unspecified; D69.6 Thrombocytopenia, unspecified; E87.6 Hypokalemia

== ENCOUNTER 2020-01-05 00:53 | Emergency (ER) | payer MEDICARE ==
[2019-10-11 13:10] VITALS: Ht 157.5 cm; Wt 60.5 kg
[~2020-01-05] VITALS: Ht 157.5 cm; Wt 60.5 kg
[~2020-01-05 00:53] MED LIST changes: +ASPIRIN81 MG PO; +AUGMENTIN 875-11 TAB PO; +HYDROCODON-ACE1 EAC7 PO; +LOPRESSOR25 MG PO; +Nicoderm [PBKC] TRANSDERM; +PLAVIX75 MG PO; +[UNRECOGNIZED DRUG - REMARK]
[2020-01-05 04:41] VITALS: BP 145/60
== END 2020-01-05 04:28 | disposition home or self-care (01) ==
LOC: D.ER 00:53
DX: S70.02XA Contusion of left hip, initial encounter (principal); E11.40 Type 2 diabetes mellitus with diabetic neuropathy, unspecified; I10 Essential (primary) hypertension; J44.9 Chronic obstructive pulmonary disease, unspecified; Z79.4 Long term (current) use of insulin; W01.10XA Fall on same level from slipping, tripping and stumbling with subsequent striking against unspecified object, initial encounter; Y93.9 Activity, unspecified; Y92.9 Unspecified place or not applicable